=== PATIENT | female | born 1985 | race Caucasian/White ===

== ENCOUNTER 2016-11-14 00:16 | Emergency (ER) | payer MEDICAID ==
[~2016-11-14] VITALS: Ht 134.6 cm; Wt 78.0 kg
[2016-11-14 00:21] VITALS: Ht 134.6 cm; Wt 78.0 kg
[2016-11-14] MEDS ORDERED: ACETAMINOPHEN 325 MG TAB PO STA (02:54)
[2016-11-14 03:48] LABS: ADD SCAN DIFF NO
[2016-11-14 04:06] LABS: BASOPHIL # 0.1 10^3/ul (0.0-0.1); BASOPHILS % 0.4 % (0.0-2.0); EOSINOPHILS # 0.1 10^3/ul (0.0-0.5); EOSINOPHILS % 0.7 % (0.0-7.0); HEMATOCRIT 35.3 % (37.0-47.0); HEMOGLOBIN 12.1 g/dl (12.0-16.0); LYMPHOCYTES # 2.9 10^3/ul (0.8-2.9); LYMPHOCYTES % 22.9 % (15.0-51.0); MEAN CORPUSCULAR HEMOGLOBIN 28.3 pg (29.0-33.0); MEAN CORPUSCULAR HGB CONC 34.3 g/dl (32.0-37.0); MEAN CORPUSCULAR VOLUME 82.7 fl (82.0-101.0); MEAN PLATELET VOLUME 10.4 fl (7.4-10.4); MONOCYTE # 0.5 10^3/ul (0.3-0.9); MONOCYTES % 4.2 % (0.0-11.0); NEUTROPHILS % 71.6 % (39.0-77.0); PLATELET COUNT 385 10^3/UL (140-415); RED BLOOD COUNT 4.27 10^6/ul (4.20-5.40); RED CELL DISTRIBUTION WIDTH 14.5 % (11.5-14.5); WHITE BLOOD COUNT 12.6 10^3/ul (4.8-10.8)
--- NOTE | 2016-11-14 04:15 | RADRPT ---
PROCEDURE: Obstetrical ultrasound. CLINICAL INDICATION: Vaginal bleeding. TECHNIQUE: Multiple sonographic images of the pelvis were obtained with transabdominal technique. Images were obtained with serrano scale and color Doppler. COMPARISON: No prior studies are available for comparison. FINDINGS: There is an intrauterine gestational sac with a pole identified. heart tones of 157 beat s per minute are identified. The crown-rump length averages 7.27 cm, compatible with 13 weeks and 3 days. A yolk sac is not visualized. No subchorionic collection is identified. There is no pelvic free fluid. Bilateral ovaries are not visualized. There is no suspicious adnexal mass identified. IMPRESSION: Single live intrauterine with an estimated gestational age of 13 weeks and 3 days, with an ultrasound MARLA of 05/19/2017. Bilateral ovaries not visualized. .Prudencio Sosa MD, MD Date Time Electronically viewed and signed by .Prudencio Sosa MD, MD on 11/14/2016 04:15 .T/
[2016-11-14] MEDS ORDERED: ACET500C5 PO (05:14)
[2016-11-14 05:36] LABS: ADD UMIC YES; UR ASCORBIC ACID 40 mg/dL (NEGATIVE); UR BACTERIA MODERATE /HPF (NONE SEEN); UR BILIRUBIN (Dip) NEGATIVE (NEGATIVE); UR BLOOD (Dip) 3+ mg/dL (NEGATIVE); UR CLARITY CLOUDY (CLEAR); UR COLOR YELLOW (YELLOW); UR GLUCOSE (Dip) NEGATIVE (NEGATIVE); UR KETONES (Dip) 2+ mg/dL (NEGATIVE); UR LEUKOCYTE ESTERASE (Dip) 3+ Leu/ul (NEGATIVE); UR MUCUS MODERATE /HPF (NONE SEEN); UR NITRITE (Dip) POSITIVE (NEGATIVE); UR RBC > 182 /HPF (0-5); UR SPECIFIC GRAVITY (Dip) 1.018 (1.003-1.030); UR SQUAMOUS EPITHELIAL CELL FEW /HPF (FEW); UR TOTAL PROTEIN (Dip) 2+ mg/dl (NEGATIVE); UR UROBILINOGEN (Dip) NEGATIVE (NEGATIVE); UR WBC CLUMPS MANY /HPF (NONE SEEN)
[2016-11-14] MEDS ORDERED: CEPH-443 PO (05:46)
--- NOTE | 2016-11-14 05:46 | ERD ---
ER Documentation Chief Complaint Date/Time DATE: 11/14/16 TIME: 05:44 Chief Complaint vaginal bleeding x 1 hour, states 13 weeks HPI 33-year-old female who is approximately 13 weeks is complaining of vaginal bleeding and pelvic pain about 1 hour before her presentation to the ED. Patient stated that she had some vaginal bleeding last week, and was checked by a hospital in [place]. She had no follow-up with her clinic. Patient is , LMP 07/22/2016. Denies fever or chills. Denies dysuria. Denies abdominal pain, vomiting, or diarrhea. ROS All systems reviewed and are negative except as per history of present illness. Medications Home Meds Active Scripts Cephalexin* (Keflex*) 500 Mg Capsule, 500 MG PO QID for 5 Days, CAP Prov:MYRIAM OGDEN. REGISTERED RADIOGRAPHER 11/14/16 Acetaminophen* (Tylophen*) 500 Mg Capsule, 1 CAP PO Q6H Y for PAIN AND OR ELEVATED TEMP, #20 CAP Prov:MYRIAM OGDEN. REGISTERED RADIOGRAPHER 11/14/16 Allergies Allergies: Coded Allergies: Penicillins (Verified Allergy, Unknown, rash, 11/14/16) PMhx/Soc Medical and Surgical Hx: pt denies Medical Hx, pt denies Surgical Hx Hx Alcohol Use: No Hx Substance Use: No Hx Tobacco Use: No Smoking Status: Never smoker Physical Exam Vitals Vital Signs Date Time Temp Pulse Resp B/P Pulse Ox O2 Delivery O2 Flow Rate FiO2 11/14/16 00:21 98.6 64 20 140/69 100 Physical Exam General: Well-developed, well-nourished, conscious and coherent, in no distress Skin: Warm and dry without rash, good texture and turgor Head: Normocephalic without evidence of trauma Eyes: Sclera and conjunctivae normal; pupils equal, round, and reactive to light; extraocular movements are intact Neck: Supple without meningismus or adenopathy. Carotids are equal. Trachea midline. No bruits or JVD Chest: Normal AP diameter. Good expansion without retractions. Nontender. Lungs are clear to auscultate bilaterally with good tidal volume Heart: Regular rate and rhythm. No murmur, rub, or gallops heard Abdomen: Soft and nontender without masses, guarding, or rebound. Bowel sounds are active. No hepatosplenomegaly Back: Without spinal or CVA tenderness Pelvis: Mild pelvic tenderness to palpation and stable to compression : External genitalia without lesions or masses. Large amount of blood blood clot noted in the vagina, unable to visualize the cervix. Extremities: Full range of motion. Good strength bilaterally. No clubbing, cyanosis, or edema. Peripheral pulses are intact. Sensation intact Neuro: Alert and oriented 4, GCS 15. Cranial nerves grossly intact. Motor and sensory exams nonfocal. Moves all extremities. Speech clear. Gait normal Result Diagram: 11/14/16 0336 Results 24 hrs Laboratory Tests Test 11/14/16 03:36 11/14/16 04:55 White Blood Count 12.610^3/ul Red Blood Count 4.2710^6/ul Hemoglobin 12.1g/dl Hematocrit 35.3% Mean Corpuscular Volume 82.7fl Mean Corpuscular Hemoglobin 28.3pg Mean Corpuscular Hemoglobin Concent 34.3g/dl Red Cell Distribution Width 14.5% Platelet Count 32704^3/UL Mean Platelet Volume 10.4fl Neutrophils % 71.6% Lymphocytes % 22.9% Monocytes % 4.2% Eosinophils % 0.7% Basophils % 0.4% Nucleated Red Blood Cells % 0.0/100WBC Neutrophils # 9.010^3/ul Lymphocytes # 2.910^3/ul Monocytes # 0.510^3/ul Eosinophils # 0.110^3/ul Basophils # 0.110^3/ul Nucleated Red Blood Cells # 0.010^3/ul Beta HCG, Quantitative 65892.0mIU/ml Urine Color YELLOW Urine Clarity CLOUDY Urine pH 6.0 Urine Specific [place] 1.018 Urine Ketones 2+mg/dL Urine Nitrite POSITIVEmg/dL Urine Bilirubin NEGATIVEmg/dL Urine Urobilinogen NEGATIVEmg/dL Urine Leukocyte Esterase 3+Xander/ul Urine Microscopic RBC > 182/HPF Urine Microscopic WBC > 182/HPF Urine Squamous Epithelial Cells FEW/HPF Urine Bacteria MODERATE/HPF Urine Mucus MODERATE/HPF Urine Hemoglobin 3+mg/dL Urine Glucose NEGATIVEmg/dL Urine Total Protein 2+mg/dl Current Medications Medications (Trade) Dose Ordered Sig/Kimberley Route PRN Reason Start Time Stop Time Status Last Admin Dose Admin Acetaminophen (Tylenol Tab) 650 mg ONCE STAT PO 11/14/16 02:54 11/14/16 02:56 DC 11/14/16 03:49 Ceftriaxone Sodium (Rocephin) 250 mg ONCE ONCE IM 11/14/16 06:00 11/14/16 06:01 PROCEDURE: Obstetrical ultrasound. CLINICAL INDICATION: Vaginal bleeding. TECHNIQUE: Multiple sonographic images of the pelvis were obtained with transabdominal technique. Images were obtained with serrano scale and color Doppler. COMPARISON: No prior studies are available for comparison. FINDINGS: There is an intrauterine gestational sac with a pole identified. heart tones of 157 beats per minute are identified. The crown-rump length averages 7.27 cm, compatible with 13 weeks and 3 days. A yolk sac is not visualized. No subchorionic collection is identified. There is no pelvic free fluid. Bilateral ovaries are not visualized. There is no suspicious adnexal mass identified. IMPRESSION: Single live intrauterine with an estimated gestational age of 13 weeks and 3 days, with an ultrasound MARLA of 05/19/2017. Bilateral ovaries not visualized. .Prudencio Sosa MD, MD Date Time Electronically viewed and signed by .Prudencio Sosa MD, on 11/14/2016 04:15 .T/ CC: MYRIAM OGDEN REGISTERED RADIOGRAPHER Procedures/MDM ED course: CBC: Mild leukocytosis with WBC 12.6, otherwise unremarkable. Beta hC.0, within the normal limits for patient's gestational age. UA: 3+ leukocyte, positive nitrite, moderate bacteria. Indicative of urinary tract infection. Rocephin 500 mg IV piggyback given. Blood type: O+. RhoGAM is not indicated for patient. OB ultrasound: Single live intrauterine with estimated gestational age of 13 weeks and 3 days. heart tone 157 bpm Medical decision-making: Well-appearing 31-year-old female who is approximately 13 weeks presents to ED with pelvic pain and vaginal bleeding. Although her ultrasound and beta hCG quant appears to be normal, she is bleeding quite heavily on vaginal exam. I suspect the patient may be in the process of spontaneous . I also consulted Laborist on-call, Dr. Bass, who agrees with my assessment. Patient was informed of all the testing results, and advised to follow-up with her PCP or OB in 2 days for recheck beta hCG. Patient also advised to return to the ED in 2 days if she is unable to see her PCP or OB. Anticipatory guidance provided for the patient regarding the threatened process. Medications on discharge: Tylenol, Keflex. Follow-up: Primary care provider in 2 days or return to ED if worse. Departure Diagnosis: Primary Impression: Vaginal bleeding in patient at less than 20 weeks ges... Condition: Stable Patient Instructions: Possible Miscarriage (Threatened ) Referrals: [facility] [place] [address] [facility] [address] [place] [address] OFFICE FAX , [facility] [address] [place] [address] [facility] [address] [place] [address] [address] [place], [facility] [address] [facility], [facility] [id number] [address] [address] [facility] [address] [place] [address] [facility] [address] [place] [address] [facility] [id number] - [address] [facility] [address] [address], [place] [address] [facility]. [address], [facility] [address] [address], [facility] [address] [place], [place] [id number] Additional Instructions: Llame al doctor MAANA y simon abhilash PAT PARA DENTRO DE 2-3 CONNOR.Dgale a la secretaria que nosotros le instruimos hacer esta pat.Avise o llame si elise condicin se empeora antes de la pat. Regresa aqui si peor o no mejor. MYRIAM OGDEN. MAIN Nov 14, 2016 05:45
[2016-11-14] MEDS ORDERED: CEFTRIAXONE 250 MG INJ IM ONE (06:00)
[2016-11-14] MEDS ORDERED: CEFTRIAXONE 500 MG in SOD CHLORIDE 0.9% 50 ML IVPB ONE (06:00)
== END 2016-11-14 06:37 | disposition home or self-care (01) ==
LOC: FTE 00:16
DX: O20.9 Hemorrhage in early pregnancy, unspecified (principal); R40.2412 Glasgow coma scale score 13-15, at arrival to emergency department; R10.2 Pelvic and perineal pain; Z3A.13 13 weeks gestation of pregnancy
CPT/HCPCS: 36415; 76801; 81001; 84702; 85025; 86900; 86901; 96374; J0696; Z7502; Z7610